=== PATIENT | male | born 1995 | race Caucasian/White ===

== ENCOUNTER 2019-05-11 21:21 | Emergency (ER) | payer OTHER ==
[2019-05-11 21:52] VITALS: BP 139/76; PULSE 98; TEMP 98.7; BMI 25.1
[2019-05-11 22:20] LABS: URINE APPEARANCE CLEAR; URINE BILIRUBIN NEGATIVE (NEGATIVE); URINE COLOR YELLOW; URINE GLUCOSE (UA) NEGATIVE (NEGATIVE); URINE KETONE NEGATIVE (NEGATIVE); URINE LEUK ESTERASE NEGATIVE (NEGATIVE); URINE NITRITE NEGATIVE (NEGATIVE); URINE PROTEIN NEGATIVE (NEGATIVE); URINE UROBILINOGEN 0.2 mg/dL (0.2-1.0)
--- NOTE | 2019-05-11 23:33 | PDOC ---
*Physical Exam - Vital Signs Last Vital Signs Temp Pulse Resp BP Pulse Ox 98.7 F 98 H 17 139/76 100 05/11/19 21:49 05/11/19 21:49 05/11/19 21:49 05/11/19 21:49 05/11/19 21:49 ED Treatment Course - ADDITIONAL ORDERS Additional order review: Laboratory Results 05/11/19 22:14 Urine Color Yellow Urine Appearance Clear Urine pH 7.0 Ur Specific [place] 1.009 L Urine Protein Negative Urine Glucose (UA) Negative Urine Ketones Negative Urine Blood Negative Urine Nitrite Negative Urine Bilirubin Negative Urine Urobilinogen 0.2 Ur Leukocyte Esterase Negative Medical Decision Making - Medical Decision Making 05/11/19 23:32 Patient seen by the advanced practice provider under my direct supervision. Ancillary testing reviewed as necessary. I agree with plan as outlined by the advanced practice provider. *DC/Admit/Observation/Transfer Diagnosis at time of Disposition: Dysuria - Discharge Dispostion Disposition: HOME - Referrals Referrals: Mukesh Montelongo MD [Staff Physician] - - Patient Instructions Printed Discharge Instructions: Urinary Tract Infection Additional Instructions: You were evaluated for your back pain and painful urination Your urine did not show an infection. You were treated for STDs today. You may call for your results of your testing in 2-3 days. Please follow up with her primary care doctor this week. You may take Tylenol 650 mg every 4 hours as needed for pain. Do not take more than 4000mg a day. Return to the ER for any new or worsening symptoms. Print Language: [place] - Post Discharge Activity Forms/Work/School Notes: Back to Work
[2019-05-11] MEDS ORDERED: AZITHROMYCIN 500 MG TABLET PO ONE (23:36)
--- NOTE | 2019-05-11 23:46 | PDOC ---
History of Present Illness - General Chief Complaint: Urinary Problem Stated Complaint: BACK PAIN Time Seen by Provider: 05/11/19 23:25 History Source: Patient Exam Limitations: No Limitations Past History - Travel Traveled outside of the country in the last 30 days: No Close contact w/someone who was outside of country & ill: No - Past Medical History Allergies/Adverse Reactions: Allergies Allergy/AdvReac Type Severity Reaction Status Date / Time No Known Allergies Allergy Verified 05/11/19 21:51 Home Medications: Ambulatory Orders NK [No Known Home Medication] 05/11/19 COPD: No - Suicide/Smoking/Psychosocial Hx Smoking History: Never smoked Have you smoked in the past 12 months: No Information on smoking cessation initiated: No Hx Alcohol Use: No Drug/Substance Use Hx: No Review of Systems - Review of Systems Able to Perform ROS?: Yes Comments:: 05/11/19 23:41 CONSTITUTIONAL: Absent: fever, chills, diaphoresis, generalized weakness, malaise, loss of appetite HEENT: Absent: rhinorrhea, nasal congestion, throat pain, throat swelling, difficulty swallowing, mouth swelling, ear pain, eye pain, visual Changes CARDIOVASCULAR: Absent: chest pain, loss of consciousness, palpitations, irregular heart rate, peripheral edema RESPIRATORY: Absent: cough, shortness of breath, dyspnea with exertion, orthopnea, wheezing, stridor, hemoptysis GASTROINTESTINAL: Absent: abdominal pain, abdominal distension, nausea, vomiting, diarrhea, constipation, melena, hematochezia GENITOURINARY: Present: dysuria Absent: frequency, urgency, hesitancy, hematuria, flank pain, genital pain MUSCULOSKELETAL: Present: back pain Absent: myalgia, arthralgia, joint swelling SKIN: Absent: rash, itching, pallor HEMATOLOGIC/IMMUNOLOGIC: Absent: easy bleeding, easy bruising, lymphadenopathy, frequent infections ENDOCRINE: Absent: unexplained weight gain, unexplained weight loss, heat intolerance, cold intolerance NEUROLOGIC: Absent: headache, focal weakness or paresthesias, dizziness, unsteady gait, seizure, mental status changes, bladder or bowel incontinence PSYCHIATRIC: Absent: anxiety, depression, suicidal or homicidal ideation, hallucinations. Is the patient limited [place] proficient: No *Physical Exam - Vital Signs Last Vital Signs Temp Pulse Resp BP Pulse Ox 98.7 F 98 H 17 139/76 100 05/11/19 21:49 05/11/19 21:49 05/11/19 21:49 05/11/19 21:49 05/11/19 21:49 - Physical Exam Comments: 05/11/19 23:42 GENERAL: The patient is awake, alert, and fully oriented, in no acute distress. HEAD: Normal with no signs of trauma. EYES: Pupils equal, round and reactive to light, extraocular movements intact, sclera anicteric, conjunctiva clear. ABDOMINAL: Soft. Non-tender. Non-distended. No rebound or guarding. No organomegaly. Normoactive bowel sounds. MUSCULOSKELETAL Normal range of motion at all joints. No bony deformities or tenderness. No CVA tenderness. EXTREMITIES: Normal range of motion, no edema. NEUROLOGICAL: Normal speech, normal gait. PSYCH: Normal mood, normal affect. SKIN: Warm, Dry, normal turgor, no rashes or lesions noted ED Treatment Course - ADDITIONAL ORDERS Additional order review: Laboratory Results 05/11/19 22:14 Urine Color Yellow Urine Appearance Clear Urine pH 7.0 Ur Specific [place] 1.009 L Urine Protein Negative Urine Glucose (UA) Negative Urine Ketones Negative Urine Blood Negative Urine Nitrite Negative Urine Bilirubin Negative Urine Urobilinogen 0.2 Ur Leukocyte Esterase Negative Medical Decision Making - Medical Decision Making 05/11/19 23:43 The patient is a 23-year-old male past medical history who presents to the ER today with 3 days of back tightness with associated dysuria and painful ejaculation. Patient states that approximately 3 weeks ago he received unprotected oral sex. He states that the dysuria and painful ejaculation since subsided and then the back pain started. Denies fevers, chills, abdominal pain, nausea, vomiting and diarrhea. A/P: Back pain/dysuria On exam no CVA tenderness, no abdominal tenderness. Abdomen is soft nondistended with no rebound guarding. Urine shows no infection. Given symptoms will treat prophylactically for STDs. Ceftriaxone and azithromycin ordered. We'll discharge home with PCP follow-up. Patient is comfortable with discharge planning I discussed the physical exam findings, ancillary test results and final diagnoses with the patient. I answered all of the patient's questions. The patient was satisfied with the care received and felt comfortable with the discharge plan and treatment plan. The Patient agrees to follow up with the primary care physician/specialist within 24-72 hours. Return precautions were given. *DC/Admit/Observation/Transfer Diagnosis at time of Disposition: Dysuria - Discharge Dispostion Disposition: HOME - Referrals Referrals: Mukesh Montelongo MD [Staff Physician] - - Patient Instructions Printed Discharge Instructions: Urinary Tract Infection Additional Instructions: You were evaluated for your back pain and painful urination Your urine did not show an infection. You were treated for STDs today. You may call for your results of your testing in 2-3 days. Please follow up with her primary care doctor this week. You may take Tylenol 650 mg every 4 hours as needed for pain. Do not take more than 4000mg a day. Return to the ER for any new or worsening symptoms. Print Language: ITALIAN - Post Discharge Activity Forms/Work/School Notes: Back to Work
[2019-05-11] MEDS ORDERED: cefTRIAXone SODIUM 1 GM VIAL ONE (23:47)
[2019-05-11] MEDS ORDERED: AZITHROMYCIN 250 MG TABLET ONE (23:47)
[2019-05-12] MEDS ORDERED: LIDOCAINE HCL 1%, 10 MG/ML (20ML VIAL) ONE (00:10)
== END 2019-05-12 00:26 | disposition home or self-care (01) ==
LOC: JERFT 21:21 → JER 21:21
DX: R30.0 Dysuria (principal)
CPT/HCPCS: 36415; 81003; 87086; 87491; 87591; 96372; 99281-25